=== PATIENT | female | born 1955 | race Caucasian/White ===

== ENCOUNTER → 2020-07-25 | Outpatient (CLI) | payer OTHER | LOC: KOH-I 15:32 | DX: M79.672 Pain in left foot (principal); M79.671 Pain in right foot; M19.071 Primary osteoarthritis, right ankle and foot; M19.072 Primary osteoarthritis, left ankle and foot | CPT/HCPCS: 73630 ==

== ENCOUNTER → 2020-08-03 | Outpatient (CLI) | payer OTHER | LOC: EXRD 08:16 | DX: M81.0 Age-related osteoporosis without current pathological fracture (principal); Z78.0 Asymptomatic menopausal state; M85.89 Other specified disorders of bone density and structure, multiple sites | CPT/HCPCS: 77080 ==

== ENCOUNTER → 2020-09-12 | Outpatient (CLI) | payer OTHER | LOC: KOH-I 15:20 | DX: M84.374A Stress fracture, right foot, initial encounter for fracture (principal) | CPT/HCPCS: 73630 ==

== ENCOUNTER → 2020-10-10 | Outpatient (CLI) | payer OTHER | LOC: KOH-I 14:29 | DX: M84.374A Stress fracture, right foot, initial encounter for fracture (principal) | CPT/HCPCS: 73630 ==

== ENCOUNTER 2021-11-23 12:05 | Emergency (ER) | payer OTHER | END 2021-11-23 13:30 | disposition left against medical advice (07) | LOC: ER1 12:05 | DX: S80.811A Abrasion, right lower leg, initial encounter (principal); I83.891 Varicose veins of right lower extremity with other complications; I10 Essential (primary) hypertension; W54.8XXA Other contact with dog, initial encounter | CPT/HCPCS: 99282 ==

== ENCOUNTER → 2021-12-19 | Outpatient (CLI) | payer OTHER | LOC: EXRD 14:51 | DX: R09.89 Other specified symptoms and signs involving the circulatory and respiratory systems (principal); I65.23 Occlusion and stenosis of bilateral carotid arteries; E04.2 Nontoxic multinodular goiter | CPT/HCPCS: 93880 ==

== ENCOUNTER → 2021-12-28 | Outpatient (CLI) | payer OTHER | LOC: EXRD 11:07 | DX: E04.1 Nontoxic single thyroid nodule (principal) | CPT/HCPCS: 76536 ==